=== PATIENT | female | born 1985 | race Caucasian/White ===

== ENCOUNTER → 2016-05-21 | Outpatient (CLI) | payer OTHER | LOC: FIMAGING 12:20 | PROVIDERS: ATTEND Obstetrics & Gynecology | DX: Z36 Encounter for antenatal screening of mother (principal) ==

== ENCOUNTER → 2016-07-08 | Outpatient (CLI) | payer OTHER | LOC: FIMAGING 09:52 | PROVIDERS: ATTEND Obstetrics & Gynecology | DX: Z36 Encounter for antenatal screening of mother (principal); Z3A.19 19 weeks gestation of pregnancy ==

== ENCOUNTER 2016-10-11 17:50 | Observation (INO) | payer OTHER ==
[2016-10-11 17:55] VITALS: TEMP 97.9
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
[2016-10-11 19:54] VITALS: BP 106/65; PULSE 78; RESP 16; O2SAT 96
== END 2016-10-11 20:30 | disposition home or self-care (01) ==
LOC: FLD 19:53
PROVIDERS: ADMIT Obstetrics & Gynecology; ATTEND Obstetrics & Gynecology
DX: O99.89 Other specified diseases and conditions complicating pregnancy, childbirth and the puerperium (principal); Y26.XXXA Exposure to smoke, fire and flames, undetermined intent, initial encounter; Y92.018 Other place in single-family (private) house as the place of occurrence of the external cause; Z3A.33 33 weeks gestation of pregnancy; Y99.8 Other external cause status

== ENCOUNTER 2018-06-06 15:41 | Emergency (ER) | payer OTHER ==
[2018-06-06] MEDS ORDERED: ONDANSETRON 4 MG/2 ML VIAL IVP ONE (16:02)
[2018-06-06] MEDS ORDERED: fentaNYL 100 MCG/2 ML INJ IVP ONE ×2 (16:02→19:12)
[2018-06-06] MEDS ORDERED: NS 1,000 ML IV ONE ×2 (16:02→17:35)
[2018-06-06] MEDS ORDERED: KETOROLAC 30 MG/1 ML SDV IVP ONE (16:02)
--- NOTE | 2018-06-06 16:04 | EDPHY ---
H & P Stated Complaint: R mid abd pain x 4 days, n/v constipation feers at home - Personal History LMP (Females 10-55): Over 28 Days Ago - Medical/Surgical History Hx Asthma: No Hx Chronic Respiratory Disease: No Hx Diabetes: No Hx Cardiac Disease: No Hx Renal Disease: No Hx Cirrhosis: No Hx Alcoholism: No Hx HIV/AIDS: No Hx Splenectomy or Spleen Trauma: No Other PMH: anxiety - Social History Smoking Status: Never smoked <Nyasia Garrett - Last Filed: 06/06/18 16:03> <Basil Gomez - Last Filed: 06/06/18 21:58> Time Seen by Provider: 06/06/18 15:56 HPI/ROS: CHIEF COMPLAINT: Right lower quadrant abdominal pain x4 days HISTORY OF PRESENT ILLNESS: 33-year-old female generally healthy complaining of right lower quadrant abdominal pain for the past 4 days. Saw her PCP yesterday recommend go to the ER. The pain is progressively worse today. No nausea or vomiting. No back or flank pain. No urinary abnormality. Last oral intake was last night. PRIMARY CARE PROVIDER: REVIEW OF SYSTEMS: 10 systems reviewed and negative with the exception of the elements mentioned in the history of present illness PAST MEDICAL & SURGICAL HISTORY: No pertinent medical or surgical history SOCIAL HISTORY: Nonsmoker. . PHYSICAL EXAM (Prior to examination, patient consented to physical exam, hands were washed and my usual and customary physical exam procedures followed) 1) GENERAL: Well-developed, well-nourished, alert and oriented. Appears uncomfortable 2) HEAD: Normocephalic, atraumatic 3) HEENT: Pupils equal, round, reactive to light bilaterally. Sclera anicteric. 4) NECK: Full range of motion, no meningeal signs. 5) LUNGS: Clear auscultation bilaterally, no wheezes, no rhonchi, no retractions. 6) HEART: Regular rate and rhythm, no murmur, no heave, no gallop. 7) ABDOMEN: Guarding abdomen, tender to palpation right lower quadrant, n negative Rapp's, negative Rovsing's, negative peritoneal sign, 8) MUSCULOSKELETAL: Moving all extremities, no focal areas of tenderness, no obvious trauma. No peripheral edema or discoloration. 9) BACK: No CVA tenderness, no midline vertebral tenderness, no fluctuance, no step-off, no obvious trauma, no visual or palpable abnormality. 10) SKIN: No rash, no petechiae. 11) Psychiatric: Patient is oriented X 3, there is no agitation. DIFFERENTIAL DIAGNOSIS: My differential diagnosis includes, but is not limited to, acute appendicitis, acute cholecystitis, bowel obstruction, acute pancreatitis, ovarian torsion, ectopic , gastritis. The patient understands that this diagnosis is provisional and can never be 100% accurate. This is a partial list of diagnoses considered. These considerations are based on history, physical exam, past history and reassessment. (Nyasia Garrett) Constitutional: Initial Vital Signs Temperature (C) 37.0 C 06/06/18 15:50 Heart Rate 76 06/06/18 15:50 Respiratory Rate 20 06/06/18 15:50 Blood Pressure 107/64 06/06/18 15:50 O2 Sat (%) 96 06/06/18 15:50 O2 Delivery Mode Room Air Allergies/Adverse Reactions: cephalexin monohydrate [From Keflex] Allergy (Verified 10/11/16 17:51) doxycycline Allergy (Verified 10/11/16 17:51) Home Medications: Medication Instructions Recorded Ondansetron Odt [Zofran Odt 4 mg 4 mg PO Q4 PRN #10 tab 06/06/18 (RX)] Ortho-Novum 1-35-28 Tablet 06/06/18 Sertraline HCl 06/06/18 oxyCODONE IR [Oxycodone Ir (*)] 5 - 10 mg PO Q6 PRN #20 tab 06/06/18 oxyCODONE IR [Oxycodone Ir (*)] 5 mg PO Q4-6PRN PRN #20 tab 06/06/18 Medical Decision Making <Nyasia Garrett - Last Filed: 06/06/18 16:03> - Diagnostics Imaging: Discussed imaging studies w/ call center dispatcher Radiologist, I viewed and interpreted images myself <Basil Gomez - Last Filed: 06/06/18 21:58> - Diagnostics Imaging Results: Imaging Impressions Abdomen Ultrasound 06/06/18 16:03 Impression: 1. Normal sonographic appearance of the right upper quadrant of the abdomen. 2. Nondiagnostic assessment of the appendix. Findings were discussed with Basil Gomez M.D. at 17:40, on 06/06/2018. Pelvic/Renal Ultrasound 06/06/18 16:03 Impression: There are 2 contiguous simple-appearing follicular cysts associated with the right ovary, with no evidence of torsion or free fluid. Findings were discussed with Basil Gomez M.D. at 17:37, on 06/06/2018. Abdomen CT 06/06/18 17:33 Impression: 1. Borderline dilation of the proximal aspect of the appendix, measuring up to 8.4 mm with a punctate appendicolith. The [id number] appendix is normal in diameter. There is no periappendiceal inflammation. There are some fluid-filled loops of distal ileum and proximal colon noted in the vicinity. 2. There are a couple of simple appearing right ovarian cysts which were previously evaluated sonographically. 3. Borderline-splenomegaly. Findings were discussed with Basil Gomez M.D. at 19:20, on 06/06/2018. ED Course/Re-evaluation: Care of patient under supervision of secondary supervising physician Dr Gomez . (Nyasia Garrett) 1600: I assumed care of this patient from RADHA Garrett. 1723: I spoke to Dr. Ryan, radiologist, regarding patient's abdominopelvic CT. There is an 8.6mm proximal appendix which may indicated appendicitis. I have paged the general surgeon. 1725: Reassessed patient and discussed imaging studies. I have also discussed plan for admission and further observation which she is comfortable with. 1728: I consulted with Dr. Murray, general surgeon, regarding this patient. He will come to the emergency department to consult on this patient when he is finished in the OR. I will also order a repeat CBC at 20:00, 30 minutes from now. 2041: Patient's repeat CBC reveals no significant changes. We are still awaiting Dr. Murray's consult. 2144: I consulted with Dr. Murray, who believes that the patient is having a viral illness consistent with mesenteric adenitis. 1gm IV Invanz administered. Patient should be safe to be discharged per Dr. Murray. 2155: Reassessed patient and discussed plan for discharge. I have prescribed her OxyIR for pain and Zofran for nausea. Return precautions provided; patient is comfortable with this plan. (Basil Gomez) - Data Points Laboratory Results: Laboratory Results 06/06/18 20:00 06/06/18 16:10 06/06/18 06/06/18 06/06/18 20:00 16:10 16:10 WBC 4.16 10^3/uL 10^3/uL (3.80-9.50) RBC 3.74 10^6/uL L 10^6/uL (4.18-5.33) Hgb 11.4 g/dL L g/dL (12.6-16.3) Hct 35.4 % L % (38.0-47.0) MCV 94.7 fL fL (81.5-99.8) MCH 30.5 pg pg (27.9-34.1) MCHC 32.2 g/dL L g/dL (32.4-36.7) RDW 12.7 % % (11.5-15.2) Plt Count 150 10^3/uL 10^3/uL (150-400) MPV 10.1 fL fL (8.7-11.7) Neut % (Auto) 54.4 % % (39.3-74.2) Lymph % (Auto) 32.9 % % (15.0-45.0) [place] % (Auto) 8.9 % % (4.5-13.0) Eos % (Auto) 3.4 % % (0.6-7.6) Baso % (Auto) 0.2 % L % (0.3-1.7) Nucleat RBC Rel Count 0.0 % % (0.0-0.2) Absolute Neuts (auto) 2.26 10^3/uL 10^3/uL (1.70-6.50) Absolute Lymphs (auto) 1.37 10^3/uL 10^3/uL (1.00-3.00) Absolute Monos (auto) 0.37 10^3/uL 10^3/uL (0.30-0.80) Absolute Eos (auto) 0.14 10^3/uL 10^3/uL (0.03-0.40) Absolute Basos (auto) 0.01 10^3/uL L 10^3/uL (0.02-0.10) Absolute Nucleated RBC 0.00 10^3/uL 10^3/uL (0-0.01) Immature Gran % 0.2 % % (0.0-1.1) Immature Gran # 0.01 10^3/uL 10^3/uL (0.00-0.10) Sodium 137 mEq/L mEq/L (135-145) Potassium 4.3 mEq/L mEq/L (3.5-5.2) Chloride 104 mEq/L mEq/L (97-110) Carbon Dioxide 25 mEq/l mEq/l (22-31) Anion Gap 8 mEq/L mEq/L (6-14) BUN 9 mg/dL mg/dL (7-23) Creatinine 1.0 mg/dL mg/dL (0.6-1.0) Estimated GFR > 60 Glucose 91 mg/dL mg/dL (70-100) Calcium 8.4 mg/dL L mg/dL (8.5-10.4) Total Bilirubin 0.5 mg/dL mg/dL (0.1-1.4) Conjugated Bilirubin 0.4 mg/dL mg/dL (0.0-0.5) Unconjugated Bilirubin 0.1 mg/dL mg/dL (0.0-1.1) AST 114 IU/L H IU/L (14-46) ALT 104 IU/L H IU/L (9-52) Alkaline Phosphatase 90 IU/L IU/L (38-126) Total Protein 6.5 g/dL g/dL (6.3-8.2) Albumin 3.7 g/dL g/dL (3.5-5.0) Lipase 73 IU/L IU/L (23-300) Beta HCG, Qual NEGATIVE 06/06/18 16:10 WBC 4.63 10^3/uL 10^3/uL (3.80-9.50) RBC 4.74 10^6/uL 10^6/uL (4.18-5.33) Hgb 14.1 g/dL g/dL (12.6-16.3) Hct 42.7 % % (38.0-47.0) MCV 90.1 fL fL (81.5-99.8) MCH 29.7 pg pg (27.9-34.1) MCHC 33.0 g/dL g/dL (32.4-36.7) RDW 12.9 % % (11.5-15.2) Plt Count 200 10^3/uL 10^3/uL (150-400) MPV 10.5 fL fL (8.7-11.7) Neut % (Auto) 57.7 % % (39.3-74.2) Lymph % (Auto) 30.2 % % (15.0-45.0) [place] % (Auto) 7.8 % % (4.5-13.0) Eos % (Auto) 4.1 % % (0.6-7.6) Baso % (Auto) 0.2 % L % (0.3-1.7) Nucleat RBC Rel Count 0.0 % % (0.0-0.2) Absolute Neuts (auto) 2.67 10^3/uL 10^3/uL (1.70-6.50) Absolute Lymphs (auto) 1.40 10^3/uL 10^3/uL (1.00-3.00) Absolute Monos (auto) 0.36 10^3/uL 10^3/uL (0.30-0.80) Absolute Eos (auto) 0.19 10^3/uL 10^3/uL (0.03-0.40) Absolute Basos (auto) 0.01 10^3/uL L 10^3/uL (0.02-0.10) Absolute Nucleated RBC 0.00 10^3/uL 10^3/uL (0-0.01) Immature Gran % 0.0 % % (0.0-1.1) Immature Gran # 0.00 10^3/uL 10^3/uL (0.00-0.10) Sodium Potassium Chloride Carbon Dioxide Anion Gap BUN Creatinine Estimated GFR Glucose Calcium Total Bilirubin Conjugated Bilirubin Unconjugated Bilirubin AST ALT Alkaline Phosphatase Total Protein Albumin Lipase Beta HCG, Qual Medications Given: Discontinued Medications Fentanyl (Sublimaze) 100 mcg IVP EDNOW ONE Stop: 06/06/18 16:03 Last Admin: 06/06/18 16:19 Dose: 100 mcg Fentanyl (Sublimaze) 50 mcg IVP EDNOW ONE Stop: 06/06/18 19:13 Last Admin: 06/06/18 19:15 Dose: 50 mcg Sodium Chloride (Ns) 1,000 mls @ 0 mls/hr IV EDNOW ONE; Wide Open PRN Reason: Protocol Stop: 06/06/18 16:03 Last Admin: 06/06/18 16:17 Dose: 1,000 mls Sodium Chloride (Ns) 1,000 mls @ 0 mls/hr IV EDNOW ONE; Wide Open PRN Reason: Protocol Stop: 06/06/18 17:36 Last Admin: 06/06/18 17:45 Dose: 1,000 mls Ketorolac Tromethamine (Toradol) 15 mg IVP EDNOW ONE Stop: 06/06/18 16:03 Last Admin: 06/06/18 16:23 Dose: 15 mg Ondansetron HCl (Zofran) 4 mg IVP EDNOW ONE Stop: 06/06/18 16:03 Last Admin: 06/06/18 16:17 Dose: 4 mg Oxycodone/Acetaminophen (Percocet 5/325mg Prepack#4) 1 btl TAKEHOME EDNOW ONE Stop: 06/06/18 20:19 Last Admin: 06/06/18 20:24 Dose: 1 btl Departure <Nyasia Garrett - Last Filed: 06/06/18 16:03> <Basil Gomez - Last Filed: 06/06/18 21:58> - Departure Disposition: [facility] Inpatient Acute Clinical Impression: Mesenteric adenitis Acute appendicitis Qualifiers: Acute appendicitis type: other Qualified Code(s): K35.890 - Other acute appendicitis without perforation or gangrene Abdominal pain Qualifiers: Abdominal location: right lower quadrant Qualified Code(s): R10.31 - Right lower quadrant pain Condition: Fair Instructions: Abdominal Pain (ED), Mesenteric Adenitis (ED) Additional Instructions: 1. Take OxyIR for pain and Zofran for nausea. 2. Follow-up with your primary doctor within 72 hours. 3. Return to the Emergency Department for fever, chest pain, shortness of breath , increasing pain or other worsening of condition. Referrals: Isreal Murray MD [Medical Doctor] - As per Instructions Prescriptions: Ondansetron Odt [Zofran Odt 4 mg (RX)] 4 mg PO Q4 PRN #10 tab PRN Reason: Nausea/Vomiting, Use 1st oxyCODONE IR [Oxycodone Ir (*)] 5 mg PO Q4-6PRN PRN #20 tab PRN Reason: Pain, Moderate oxyCODONE IR [Oxycodone Ir (*)] 5 - 10 mg PO Q6 PRN #20 tab PRN Reason: Pain, Severe
[2018-06-06 16:56] LABS: PLATELET COUNT 200 10^3/uL (150-400)
[2018-06-06] MEDS ORDERED: IOPAMIDOL (ISOVUE-300) 100 ML BTL ONE (17:43)
[2018-06-06 20:13] LABS: PLATELET COUNT 150 10^3/uL (150-400)
[2018-06-06] MEDS ORDERED: OXYCODONE/APAP 5/325MG PREPACK#4 BTL TAKEHOME ONE ×2 (20:18→21:54)
[2018-06-06] MEDS ORDERED: ERTAPENEM 1 GM in NS 100 ML IV ONE (21:46)
[2018-06-06 22:09] VITALS: BP 94/71
--- NOTE | 2018-06-07 04:29 | GCON ---
[f rep st] CONSULTATION IMPRESSION: Viral process. HISTORY: The patient was referred for consultation for abdominal pain. 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 She was in her usual state of good health until Friday evening when at 6 p.m. she was hungry and had dinner. She then had a sudden onset of an achy, cramping, total abdominal pain that felt viral. It felt viral because it affected every joint and muscle. It was most prominent in her left abdomen and felt like menstrual cramps. She slept poorly that night. She started taking ibuprofen 600 mg twice a day. On Friday, she woke up and the pain had resolved. She had breakfast. The pain started again at approximately 9 a.m. and again she had the total body experience of muscle aches, joint aches, and abdominal pain. She did force her lunch at 2 p.m. At 4 p.m., she had increased pain, which was the worst so far. She had nausea as well. She had dinner that night of lentil stew. She vomited then at 3 a.m. three times. Her fever went to 100. morning, the pain was still present. She stayed in bed until 10 a.m., got up transiently and went back to bed until 1 p.m. The pain was steady, but slightly decreased. She forced dinner, which caused increased pain. She did not sleep that night. She saw a doctor over at [facility] at . She was told to go to the emergency department if she felt worse. She slept better last night. On Friday morning, she felt better, but at 11:30 she felt poorly again. She has not had any vomiting in the last 24 hours. She has been using Zofran to keep nausea at bay. She has not had any bowel movements for the last 48 hours. Initially, she was having bowel movements. Note is made that her hemorrhoids are bothering her. PHYSICAL EXAMINATION: GENERAL: She is awake and alert. There is no cervical, supraclavicular, axillary, or inguinal lymphadenopathy. Thyroid is unremarkable. LUNGS: Clear to auscultation. CARDIAC: Exam shows S1, S2 to be normal. ABDOMEN: Tender with cough above McBurney's point. To palpation, she is in the left upper quadrant 1, left mid abdomen 3, left lower quadrant 4, epigastrium 2, periumbilical area 4, suprapubic area 6, right upper quadrant 2, right mid abdomen 5, right lower quadrant 7. Obturator sign is negative. Psoas sign is minimally positive. Her percent lymphocytes has increased from 30 to 32 over 4 hours and her white count has dropped from 4.6 to 4.1 in the same time period. Hematocrit is 35. Her CT scan does show essentially normal diameter appendix with minimal wall thickening. There is no evidence of appendicolith or periappendiceal stranding. There are mesenteric lymph nodes identified. IMPRESSION: I suspect this is not appendicitis, but rather a viral illness. I have, however, suggested that to cover all bases that we treat "appendicitis" with antibiotics. She will receive a dose of Invanz and be continued on 5 days of Augmentin. She has been able to keep liquids down and has been urinating throughout this course. She feels comfortable going home at this time. She understands that should she have any increasing pain, she is to come back to the emergency room. I have recommended that she go home with Tylenol 1000 mg every 8 hours for pain control, to limit her Motrin to 200 mg every 6, and use perhaps Dilaudid for severe pain control. She understands the planned procedure. I have offered hospital admission for observation and she is not interested in that at this time. /[id number]/MODL MTDD
== END 2018-06-06 22:48 | disposition still patient (30) ==
DX: B34.9 Viral infection, unspecified (principal); I88.0 Nonspecific mesenteric lymphadenitis; N83.01 Follicular cyst of right ovary; F41.9 Anxiety disorder, unspecified; E86.9 Volume depletion, unspecified
CPT/HCPCS: 96374; J1335; J1885; J2405; J3010; Q9967